=== PATIENT | female | born 2000 | race Caucasian/White ===

== ENCOUNTER 2023-04-23 18:30 | Outpatient (CLI) | payer OTHER ==
[~2023-04-23] VITALS: Ht 167.6 cm; Wt 116.6 kg
[2023-04-23 19:41] VITALS: BP 118/85
[2023-05-10] MEDS ORDERED: PRENTAB9 PO (13:00)
[2023-05-10] MEDS ORDERED: ASPI81CH33 PO (13:00)
[2023-05-10] MEDS ORDERED: FERR325T3 PO (13:00)
== END 2023-04-23 19:35 | disposition home or self-care (01) ==
LOC: M LDO 18:30
PROVIDERS: ATTEND Obstetrics & Gynecology
DX: O47.1 False labor at or after 37 completed weeks of gestation (principal); Z3A.37 37 weeks gestation of pregnancy
CPT/HCPCS: 59025; G0463

== ENCOUNTER 2023-11-07 11:22 | Emergency (ER) | payer OTHER ==
[~2023-11-07] VITALS: Ht 167.6 cm; Wt 113.8 kg
[~2023-11-07 11:22] MED LIST: ASPI81CH33 PO; FERR325T3 PO; PRENTAB9 PO
[2023-11-07] MEDS ORDERED: ETON68IM SC (11:33)
[2023-11-07 17:50] VITALS: BP 132/88; TEMP 97.8; O2SAT 98
== END 2023-11-07 17:52 | disposition home or self-care (01) ==
LOC: M ED 14:27
DX: R30.0 Dysuria (principal); E66.9 Obesity, unspecified; N20.0 Calculus of kidney